=== PATIENT | male | born 1960 | race Two or more races ===

== ENCOUNTER 2018-05-31 10:17 | Day surgery (SDC) ==
[2018-05-31] MEDS ORDERED: DIPRIVAN 20 ML VIAL IVP ONE (11:30)
[2018-05-31] MEDS ORDERED: VERSED ONE (11:30)
[2018-05-31] MEDS ORDERED: LIDOCAINE HCL 2% LUER-JET ONE (11:30)
[2018-05-31] MEDS ORDERED: LIDOCAINE 1% 20 ML MDV ID STA (11:34)
[2018-05-31 15:36] VITALS: BP 132/63
--- NOTE | 2018-06-01 09:34 | OP ---
PROCEDURE: EGD (ESOPHAGOGASTRODUODENOSCOPY) . ENDOSCOPIST: Stephon DUPREE M.D. INDICATION: REFLUX INSTRUMENT: GIFH-190. MEDICATION: PER ANESTHESIA. PROCEDURE: The patient was positioned for endoscopy. The oropharynx was intubated with the endoscopy which was advanced through the oropharynx into the esophagus and from there into the duodenum. The duodenum was normal. The pylorus was patent. The antrum is normal. Patulous cardia noted on retroflex exam. Possible small hiatal hernia. Z-line was regular at 39cm. The esophagus was normal. The patient' tolerated the procedure and was repositioned for colonoscopy. [facility] [place] [facility]
--- NOTE | 2018-06-01 09:37 | OP ---
PROCEDURE: COLONOSCOPY TO THE CECUM. ENDOSCOPIST: Stephon DUPREE M.D. INDICATION: DIVERTICULITIS INSTRUMENT: PCFH-190. MEDICATION: PER ANESTHESIA. PROCEDURE: The patient was positioned for colonoscopy. The digital rectal exam was negative. The colonoscope was inserted through the anus and advanced to the cecum. The cecum was identified using the ileocecal valve and the appendiceal orifice as landmarks. The scope was slowly withdrawn through an adequately prepped colon. [place] Bowel Prep Score equals 9. The terminal ileum was intubated and is normal. He has extensive left sided diverticular disease. Significant internal and external hemorrhoids seen on retroflex exam. No other abnormalities were noted. He tolerated the procedure without immediate complication. Withdraw time 7 minutes and 2 seconds. PLAN: 1. Repeat in 5 years for adenomatous surveillance 2. Followup with his local physicians CC: [facility]. [place]
== END 2018-05-31 13:20 | disposition home or self-care (01) ==
LOC: SURG 10:17
PROVIDERS: ATTEND Internal Medicine Gastroenterology
DX: K57.90 Diverticulosis of intestine, part unspecified, without perforation or abscess without bleeding (principal); K21.9 Gastro-esophageal reflux disease without esophagitis; K44.9 Diaphragmatic hernia without obstruction or gangrene; K57.92 Diverticulitis of intestine, part unspecified, without perforation or abscess without bleeding; K64.9 Unspecified hemorrhoids